=== PATIENT | female | born 2000 | race Caucasian/White ===

== ENCOUNTER 2024-05-21 21:54 | Emergency (ER) | payer SELFPAY ==
[2024-05-21] MEDS: Sodium Chloride 0.9% 2.5 ML Syringe FLUSH PRN (23:18)
[2024-05-21] MEDS: Sodium Chloride 0.9% 10 ML Syringe FLUSH PRN (23:18)
[2024-05-21 23:28] LABS: BASOPHILS ABSOLUTE AUTO 0.02 K/uL (0.00-0.20); BASOPHILS PERCENT AUTO 0.2 % (0.0-1.0); EOSINOPHILS ABSOLUTE AUTO 0.04 K/uL (0.00-0.45); EOSINOPHILS PERCENT AUTO 0.4 % (0.0-6.0); HEMATOCRIT 37.3 % (37.0-47.0); HEMOGLOBIN 12.5 g/dL (12.0-16.0); IMMATURE GRAN ABSOLUTE AUTO 0.04 K/uL (0.00-0.05); IMMATURE GRAN PERCENT AUTO 0.4 % (0.0-0.4); LYMPHOCYTES ABSOLUTE AUTO 2.69 K/uL (1.00-4.80); MEAN CORPUSCULAR HEMOGLOBIN 28.3 pg (28.0-32.0); MEAN CORPUSCULAR HGB CONC 33.5 g/dL (32.0-36.0); MEAN CORPUSCULAR VOLUME 84.6 fL (83.0-99.0); MEAN PLATELET VOLUME 9.1 fL (9.4-12.3); MONOCYTES ABSOLUTE AUTO 0.72 K/uL (0.00-0.80); MONOCYTES PERCENT AUTO 6.4 % (0.0-8.0); NEUTROPHILS ABSOLUTE AUTO 7.71 K/uL (1.80-7.70); NEUTROPHILS PERCENT AUTO 68.6 % (41.0-71.0); PLATELET COUNT,PLT 308 K/uL (150-400); RED BLOOD CELL COUNT 4.41 M/uL (4.10-5.30); WHITE BLOOD CELL COUNT,WBC 11.22 K/uL (3.9-11.3)
[2024-05-21 23:45] LABS: BILIRUBIN,URINE NEGATIVE (NEGATIVE); COLOR,URINE YELLOW; GLUCOSE,URINE NEGATIVE (NEGATIVE); KETONES,URINE NEGATIVE (NEGATIVE); LEUKOCYTE ESTERASE,URINE NEGATIVE (NEGATIVE); NITRITE,URINE NEGATIVE (NEGATIVE); OCCULT BLOOD,URINE MODERATE (NEGATIVE); PH,URINE 6.5 (5.0-8.0); PROTEIN,URINE NEGATIVE (NEGATIVE); UROBILINOGEN,URINE 0.2 EU/dL (<2.0)
[2024-05-21 23:50] LABS: APPEARANCE,URINE HAZY
[2024-05-21 23:52] LABS: BACTERIA,URINE FEW (NEGATIVE); EPITHELIAL CELLS,URINE FEW (NONE-FEW); RBC,URINE 0-3 (0-2/HPF); WBC,URINE 0-1 (0-5/HPF)
[2024-05-22 00:01] LABS: BILIRUBIN TOTAL 0.2 mg/dL (0.2-1.0); CALCIUM 9.6 mg/dL (8.5-10.1); CARBON DIOXIDE,CO2 26.3 mmol/L (21.0-32.0); CREATININE 0.6 mg/dL (0.6-1.0); EST CRCL DRUG DOSING (CG) 128.08 mL/min; POTASSIUM,K 4.2 mmol/L (3.5-5.1)
[2024-05-22 00:21] LABS: INR 0.98 (0.86-1.11)
== END 2024-05-22 01:33 | disposition home or self-care (01) ==
LOC: MW.ED 21:54
DX: O20.0 Threatened abortion (principal); Z3A.00 Weeks of gestation of pregnancy not specified
CPT/HCPCS: 36415; 76801; 80053; 81001; 84702; 85025; 85610; 86900; 86901; 99284; J3490

== ENCOUNTER 2024-12-23 23:36 | Inpatient (IN) | payer MEDICAID ==
[2024-12-24] MEDS ORDERED: Sodium Chloride 0.9% 2.5 ML Syringe FLUSH PRN (01:26)
[2024-12-24] MEDS ORDERED: Sodium Chloride 0.9% 20 ML SDV IV PRN (01:26)
[2024-12-24] MEDS ORDERED: Carboprost Tromethamine 250 MCG/1 mL Vial IM PRN (01:26)
[2024-12-24] MEDS ORDERED: Methylergonovine 0.2 MG/1 ML Amp IM PRN ×2 (01:26→13:27)
[2024-12-24] MEDS ORDERED: Water For Irrigation,Sterile 1,000 ML Container IRR PRN (01:26)
[2024-12-24] MEDS ORDERED: Misoprostol 200 MCG Tab PO PRN (01:26)
[2024-12-24] MEDS ORDERED: Sodium Chloride 0.9% 10 ML Syringe FLUSH PRN (01:26)
[2024-12-24] MEDS ORDERED: Tranexamic Acid in NACL,ISO-OS 1,000 MG in Premix Bag 1 BAG IV PRN (01:26)
[2024-12-24] MEDS ORDERED: Ondansetron 4 MG/2 ML SDV IVPUSH PRN ×4 (01:26→13:27)
[2024-12-24] MEDS ORDERED: Misoprostol 200 MCG Tab RECTAL PRN ×2 (01:26→13:27)
[2024-12-24] MEDS ORDERED: Lidocaine 1% 50 ML MDV INJECT PRN (01:26)
[2024-12-24] MEDS ORDERED: Butorphanol 2 MG/ML SDV IVPUSH PRN (01:26)
[2024-12-24] MEDS ORDERED: Oxytocin/0.9 % Sodium Chloride 30 UNIT/500 ML BAG IV SCH (01:30)
[2024-12-24 01:38] LABS: HEMATOCRIT 25.1 % (37.0-47.0); HEMOGLOBIN 8.1 g/dL (12.0-16.0); MEAN CORPUSCULAR HGB CONC 32.3 g/dL (32.0-36.0); MEAN CORPUSCULAR VOLUME 83.7 fL (83.0-99.0); MEAN PLATELET VOLUME 10.5 fL (9.4-12.3); PLATELET COUNT,PLT 470 K/uL (150-400); WHITE BLOOD CELL COUNT,WBC 18.13 K/uL (3.9-11.3)
[2024-12-24] MEDS: Lactated Ringers 1,000 ML IV SCH (02:20)
[2024-12-24] MEDS: Oxytocin/0.9 % Sodium Chloride 30 UNIT/500 ML BAG IV SCH (02:22)
[2024-12-24] MEDS: Ropivacaine HCl/PF 400 MG in Premix Bag 1 BAG EPIDUR SCH (05:25)
[2024-12-24] MEDS ORDERED: Ropivacaine HCl/PF 200 ML ONE (05:41)
[2024-12-24] MEDS ORDERED: dexmedeTOMIDine HCl 200 MCG/2 ML SDV ONE ×2 (05:41→12:42)
[2024-12-24] MEDS: Phenylephrine HCl In 0.9% NaCl 1 MG/10 ML Syringe ONE (05:55)
[2024-12-24] MEDS ORDERED: dexmedeTOMIDine HCl 200 MCG/2 ML SDV EPIDUR SCH (06:00)
[2024-12-24] MEDS: ePHEDrine 50 MG/ML SDV IVPUSH PRN (08:25)
[2024-12-24] MEDS: Terbutaline 1 MG/ML SDV SUBCUT PRN (08:38)
[2024-12-24] MEDS: Phenylephrine HCl In 0.9% NaCl 1 MG/10 ML Syringe IVPUSH PRN (10:52)
[2024-12-24] MEDS ORDERED: fentaNYL 100 MCG/2 ML SDV ONE ×2 (12:27→12:40)
[2024-12-24] MEDS ORDERED: Bupivacaine 0.5% 30 ML SDV ONE (12:27)
[2024-12-24] MEDS ORDERED: Azithromycin 500 MG Vial ONE (12:30)
[2024-12-24] MEDS ORDERED: ceFAZolin 2 GM Vial ONE (12:30)
[2024-12-24] MEDS ORDERED: Phenylephrine HCl In 0.9% NaCl 1 MG/10 ML Syringe ONE ×2 (12:35→13:15)
[2024-12-24] MEDS ORDERED: Oxytocin 10 Units/1 ML SDV ONE (12:35)
[2024-12-24] MEDS ORDERED: Ondansetron 4 MG/2 ML SDV ONE (12:35)
[2024-12-24] MEDS ORDERED: Dexamethasone 4 MG/ML 5 ML MDV ONE (12:35)
[2024-12-24] MEDS ORDERED: Calcium Chloride 10% 1 GM/10 ML Syringe IV ONE (12:37)
[2024-12-24] MEDS ORDERED: droPERidol 5 MG/2 ML SDV IV ONE (12:37)
[2024-12-24] MEDS ORDERED: Sodium Chloride 0.9% 20 ML ONE (12:42)
[2024-12-24] MEDS ORDERED: Morphine PF 10 MG/10 ML SDV ONE (12:44)
[2024-12-24] MEDS ORDERED: Ropivacaine 0.5% 5 MG/ML 30 ML SDV ONE (12:45)
[2024-12-24] MEDS ORDERED: Phenylephrine HCl In 0.9% NaCl 1 MG/10 ML Syringe IVPUSH PRN (13:05)
[2024-12-24] MEDS ORDERED: Acetaminophen/oxyCODONE 325-5 MG Tab PO PRN (13:05)
[2024-12-24] MEDS ORDERED: Metoclopramide 10 MG/2 ML SDV IVPUSH PRN (13:05)
[2024-12-24] MEDS ORDERED: Morphine 2 MG/ML SYRINGE IVPUSH PRN (13:05)
[2024-12-24] MEDS ORDERED: fentaNYL 50 MCG/ML SDV IVPUSH PRN ×2 (13:05)
[2024-12-24] MEDS ORDERED: diphenhydrAMINE 50 MG/ML SDV IVPUSH PRN ×2 (13:05→13:27)
[2024-12-24] MEDS ORDERED: HYDROmorphone 1 MG/ML Syringe IVPUSH PRN (13:05)
[2024-12-24] MEDS ORDERED: Naloxone 0.4 MG/ML SDV IVPUSH PRN ×2 (13:05→13:27)
[2024-12-24] MEDS ORDERED: Nalbuphine 10 MG/1 ML Vial IVPUSH PRN (13:05)
[2024-12-24] MEDS ORDERED: Albuterol 0.083% 2.5 MG/3 ML Neb Soln NEB PRN (13:05)
[2024-12-24] MEDS ORDERED: Lanolin 100% Cream 7 GM Tube TOP PRN (13:27)
[2024-12-24] MEDS ORDERED: Bisacodyl 10 MG Supp RECTAL PRN (13:27)
[2024-12-24] MEDS ORDERED: Oxytocin 10 Units/1 ML SDV IM PRN (13:27)
[2024-12-24] MEDS ORDERED: Lactated Ringers 1,000 ML IV SCH (13:30)
[2024-12-24 14:43] LABS: PH,UMBILICAL ARTERIAL 7.179 (7.18-7.38); PH,UMBILICAL VENOUS 7.226 (7.25-7.45)
[2024-12-24] MEDS: Acetaminophen 1,000 MG in Premix Bag 1 BAG IV SCH (16:11)
[2024-12-24] MEDS: Ketorolac 30 MG/ML SDV IVPUSH SCH ×2 (16:11→21:56)
[2024-12-24] MEDS: Sodium Ferric Gluconate Cmplex 125 MG in Sodium Chloride 0.9% 100 ML IV SCH (17:00)
[2024-12-24] MEDS: Simethicone 80 MG Tab.Chew PO SCH (18:54)
[2024-12-24] MEDS: Docusate Sodium 100 MG Cap PO SCH (21:18)
[2024-12-25 07:04] LABS: HEMATOCRIT 27.1 % (37.0-47.0); HEMOGLOBIN 8.7 g/dL (12.0-16.0)
[2024-12-25 07:32] LABS: CALCIUM 8.3 mg/dL (8.5-10.1); CARBON DIOXIDE,CO2 21.3 mmol/L (21.0-32.0); CREATININE 0.8 mg/dL (0.6-1.0); EST CRCL DRUG DOSING (CG) 97.2 mL/min; POTASSIUM,K 3.7 mmol/L (3.5-5.1)
[2024-12-25] MEDS: Acetaminophen/oxyCODONE 325-5 MG Tab PO PRN (22:24)
[2024-12-26] MEDS: Ibuprofen 800 MG Tab PO PRN (04:00)
[2024-12-26] MEDS: Acetaminophen/oxyCODONE 325-5 MG Tab PO PRN (09:15)
== END 2024-12-26 12:38 | disposition home or self-care (01) | DRG 788 ==
LOC: MW.OBCHECK 23:36 → MW.OB 23:36 → MW.OBCHECK 12-24 01:20 → MW.OB 12-24 01:26 → OBSVTOIN 12-24 13:27 → MW.OB 12-24 20:28
PROVIDERS: ADMIT Obstetrics & Gynecology; ATTEND Obstetrics & Gynecology
PROC: 10D00Z1 Extraction of Products of Conception, Low, Open Approach (ICD-10-PCS; principal; 2024-12-24 12:30)
DX: O42.02 Full-term premature rupture of membranes, onset of labor within 24 hours of rupture (principal); O99.02 Anemia complicating childbirth; O24.420 Gestational diabetes mellitus in childbirth, diet controlled; O76 Abnormality in fetal heart rate and rhythm complicating labor and delivery; Z3A.38 38 weeks gestation of pregnancy; Z37.0 Single live birth
CPT/HCPCS: 01967; 01968; 36415; 51702; 59020; 64999; 80048; 82803; 82947; 84112; 85014; 85018; 85027; 86592; 86850; 86900; 86901; A9270-GY; J0131; J0456; J0665; J0690; J1100; J1790; J1885; J2274; J2371; J2405; J2590; J2795; J2916; J3010; J3490; J7120